=== PATIENT | female | born 1955 | race Caucasian/White ===

== ENCOUNTER 2017-05-03 04:23 | Inpatient (IN) | payer OTHER ==
[~2017-05-03] VITALS: Ht 157.5 cm; Wt 51.0 kg
[~2017-05-03 04:23] MED LIST: ALBUTEROL0.09 MG/A2 IH; ANAPROX DS550 MG PO; ATIVAN0.5 MG PO; ATIVAN1 MG PO; CIPROFLOXACIN500 MG PO; DOXYCYCLINE MO100 MG PO; LOMOTIL 0.025 M1 TAB PO; MEDROL DOSEPAK4 MG PO; NAPROSYN500 MG PO; NKHM; SEPTRA DS 800 M1 TAB PO; TORADOL10 MG PO; VIBRAMYCIN100 MG PO; ZITHROMAX Z PA250 MG PO; ZOFRAN ODT8 MG PO
[2017-05-03 04:30] VITALS: BP 145/71
[2017-05-03 04:58] LABS: BASO % 0.3 % (0.0-1.0); EOS % 0.4 % (1.0-4.0); HEMATOCRIT 36.1 % (37.0-47.0); HEMOGLOBIN 11.9 g/dl (12.0-16.0); LYMPH % 17.7 % (27.0-41.0); MEAN CELL VOLUME 89.8 fl (81.0-99.0); MEAN CORPUSCULAR HGB 29.6 pg (27.0-31.0); MEAN PLATELET VOLUME 10.2 fl (9.6-12.3); MONO % 8.6 % (3.0-9.0); NEUT # 8.2 10*3/uL (2.3-7.9); NEUT % 72.7 % (47.0-73.0); PLATELET COUNT AUTOMATED 244 10*3/uL (130-400); RED BLOOD COUNT 4.02 10*6/uL (4.10-5.10); RED CELL DISTRI WIDTH 11.9 % (0-14.5); WHITE BLOOD COUNT 11.2 10*3/uL (4.8-10.8)
[2017-05-03] MEDS ORDERED: AVPAK AZITHROM250 M1 PO (05:15)
[2017-05-03] MEDS ORDERED: PREDNISONE50 MG PO (05:15)
[2017-05-03 05:18] LABS: ALBUMIN 3.1 gm/dl (3.1-4.5); ALKALINE PHOSPHATASE 65 U/L (45-117); BUN 5 mg/dl (7-24); CHLORIDE 107 mmol/L (98-107); CREATININE 0.53 mg/dL (0.55-1.02); POTASSIUM 3.7 mmol/L (3.5-5.1); SGOT/AST 8 IU/L (3-35); SGPT/ALT 14 U/L (12-78); SODIUM 141 mmol/L (136-145); TOTAL PROTEIN 7.2 gm/dL (6.4-8.2)
[2017-05-03 05:20] LABS: TROPONIN I < 0.015 ng/ml (<0.045)
[2017-05-03 06:20] VITALS: BP 140/67
--- NOTE | 2017-05-03 06:20 | NUR ---
Time: 619 A 61 year old female admitted to under services of TIFFANIE ASHTON DO, Pt. arrived via stretcher from ER. Chief complaint: cough 1-2 weeks, coughing spell at 3am and having pain right side breast. SOB. skin intact. JERED RCUZ
--- NOTE | 2017-05-03 06:46 | NUR ---
tylenol given per order for headache rated "3" per pt.
[2017-05-03 08:00] VITALS: BP 127/64
--- NOTE | 2017-05-03 08:00 | NUR ---
TYLENOL EFFECTIVE PER PT.
--- NOTE | 2017-05-03 09:00 | NUR ---
Rock Worker in to talk to patient. Patient states lives at home with daughter. There are few steps in the home. Physician: [facility] Patient's level of ADLs: INDEPENDENT Patient has working utilities: all working DME: none Follow-up physician's appointment after d/c: will be made by hospitalist nurse director upon discharge Does patient want to access PORTAL?: no Discharge plan discussed with patient, patient states she lives at home with her daughter, states she is independent in adls and ambulation, no home equipement, patient drives, patient states she will be going back home and denies any home needs. PETE PEREZ
--- NOTE | 2017-05-03 09:15 | NUR ---
patient was given a list of doctors to choose from for her follow up appointment
--- NOTE | 2017-05-03 11:00 | NUR ---
PT AWARE THAT SATX'S ARE PRN...STATES SHE WILL CALL IF NEEDED.BBS DIM AT THIS TIME PT IN NO DISTRESS
[2017-05-03 12:00] VITALS: BP 116/55
[2017-05-03 16:00] VITALS: BP 136/60
[2017-05-03 20:00] VITALS: BP 122/59
--- NOTE | 2017-05-03 20:00 | NUR ---
RESTING IN BED WATCHING TV. NO DISTRESS NOTED. RESPIRATIONS EASY. LUNGS DIMINISHED WITH POOR AIR EXCHANGE. PULSE OX 95% RA, DENIES SOB. NON-PRODUCTIVE COUGH PER PATIENT. C/O SINUS DRAINAGE. OFFERED AND EDUCATED REGARDING TEDS, DECLINED. CALL LIGHT WITHIN REACH.
--- NOTE | 2017-05-03 20:35 | NUR ---
PATIENT ADMITS TO 1/2-1 PPD SMOKING. REQUESTING SOMETHING TO ASSIST. EDUCATED REGARDING OPTIONS. [facility]O CONTACTED AND INFORMED PATIENT REQUESTING NICOTROL INHALER
[2017-05-04] VITALS: BP 113/60
--- NOTE | 2017-05-04 | NUR ---
SLEEPING. NO S/S DISTRESS. RESPIRATIONS EASY. VSS. CALL LIGHT WITHIN REACH
[2017-05-04 03:55] VITALS: BP 120/62
--- NOTE | 2017-05-04 06:00 | NUR ---
RESTED THROUGHOUT NIGHT WITH NO DISTRESS NOTED. RESPIRATIONS EASY. DENIES COUGH OR SOB. VOICING DESIRE FOR DISCHARGE WHEN DR'S ROUND. CALL LIGHT WITHIN REACH
[2017-05-04 06:11] LABS: BASO % 0.1 % (0.0-1.0); HEMATOCRIT 37.2 % (37.0-47.0); HEMOGLOBIN 12.4 g/dl (12.0-16.0); LYMPH # 1.6 10*3/uL (1.3-4.4); LYMPH % 9.3 % (27.0-41.0); MEAN CELL VOLUME 89.4 fl (81.0-99.0); MEAN CORPUSCULAR HGB 29.8 pg (27.0-31.0); MEAN CORPUSCULAR HGB CONC 33.3 g/dl (33.0-37.0); MEAN PLATELET VOLUME 11.2 fl (9.6-12.3); MONO # 0.4 10*3/uL (0.1-1.0); NEUT # 15.5 10*3/uL (2.3-7.9); PLATELET COUNT AUTOMATED 291 10*3/uL (130-400); RED BLOOD COUNT 4.16 10*6/uL (4.10-5.10); RED CELL DISTRI WIDTH 11.9 % (0-14.5); WHITE BLOOD COUNT 17.6 10*3/uL (4.8-10.8)
[2017-05-04 06:30] LABS: ALBUMIN 3.1 gm/dl (3.1-4.5); BUN 9 mg/dl (7-24); CHLORIDE 109 mmol/L (98-107); CHOLESTEROL 130 mg/dL (<200); CREATININE 0.53 mg/dL (0.55-1.02); PHOSPHOROUS 3.2 mg/dL (2.5-4.9); POTASSIUM 4.1 mmol/L (3.5-5.1); SGOT/AST 10 IU/L (3-35); SGPT/ALT 17 U/L (12-78); SODIUM 143 mmol/L (136-145); TOTAL PROTEIN 7.6 gm/dL (6.4-8.2); TRIGLYCERIDES 50 mg/dl (<150); VLDL CHOLESTEROL 10 mg/dL (6-40)
[2017-05-04 06:36] LABS: ALKALINE PHOSPHATASE 65 U/L (45-117); FREE T4 1.03 ng/dl (0.76-1.46); HDL CHOLESTEROL 53 mg/dl (40-60); LDL CHOLESTEROL 67 mg/dL (9-159); THYROID STIM HORMONE (HS) 0.794 uIU/ml (0.358-4.75)
--- NOTE | 2017-05-04 08:00 | NUR ---
SITTING UP IN BED AND NO DISTRESS NOTED. STATES SHE FEELS BETTER. SEE SHIFT ASSESSMENT.
[2017-05-04 08:06] VITALS: BP 126/55
--- NOTE | 2017-05-04 08:30 | NUR ---
Rose Grower in to see patient. There are no new needs or request at this time. She is independent in her ADLs and ambulation. When medically stable she will be discharged home.
[2017-05-04 08:48] LABS: VITAMIN D, 25-HYDROXY 16.1 ng/mL (30-100)
[2017-05-04] MEDS ORDERED: LEVOFLOXACIN500 MG PO (09:54)
[2017-05-04] MEDS ORDERED: NICOTROL10 MG INH (09:54)
[2017-05-04] MEDS ORDERED: PREDNISONE10 MG PO (09:54)
[2017-05-04] MEDS ORDERED: TESSALON PERLE100 M1 PO (09:54)
--- NOTE | 2017-05-04 10:45 | NUR ---
HOME O2 ASSESSMENT: PRE BP: 129/66, HR 86, RR 18, PULSE OX 98% ON ROOM AIR. AMBULATED PATIENT TWO BRISK LAPS IN HALLWAY, PULSE OX 95% ON ROOM AIR THROUGHOUT AMBULATION. POST BP: 139/56, HR 79, RR 18, PULSE OX 96% ON ROOM AIR. APPEARED TO TOLERATE WELL. RN NOTIFIED.
--- NOTE | 2017-05-04 11:20 | NUR ---
DISCHARGED TO HOME IN CARE OF FAMILY. INSTRUCTIONS AND PERSCRIPTIONS REVIEWED WITH PT. PT REFUSED FLU VACCINE.
== END 2017-05-04 11:20 | disposition home or self-care (01) | DRG 871 ==
LOC: ED 04:23 → EDHOLD 05:29 → 4E 05:29
PROVIDERS: Family Medicine; Student in an Organized Health Care Education/Training Program; ADMIT Internal Medicine
DX: A41.9 Sepsis, unspecified organism (principal); J18.9 Pneumonia, unspecified organism; E44.0 Moderate protein-calorie malnutrition; J44.0 Chronic obstructive pulmonary disease with (acute) lower respiratory infection; J44.1 Chronic obstructive pulmonary disease with (acute) exacerbation; I10 Essential (primary) hypertension; D64.9 Anemia, unspecified; Z71.6 Tobacco abuse counseling; Z72.0 Tobacco use; Z68.20 Body mass index [BMI] 20.0-20.9, adult; Z88.8 Allergy status to other drugs, medicaments and biological substances; Z79.899 Other long term (current) drug therapy; Z87.81 Personal history of (healed) traumatic fracture; Z82.49 Family history of ischemic heart disease and other diseases of the circulatory system

== ENCOUNTER 2017-12-25 21:40 | Inpatient (IN) | payer OTHER ==
[~2017-12-25] VITALS: Ht 154.9 cm; Wt 54.1 kg
--- NOTE | ~2017-12-25 | EKG ---
[place], [place] ELECTROCARDIOGRAM REPORT NAME: KIERRA COLON UNIT #: [id number] ROOM: 516 DOCTOR: KINGSTON DRAFT REPORT BIRTHDATE: [birth year] [facility] Test Date: 2017-12-25 Test Time: 22:46:28 Pat Name: KIERRA COLON Department: ER Room: 516 Gender: F Lighting Adviser: SHAYNA : [id number] Requested By: SULMA FELIX PA-C Order Number: [id number] Reading MD: Fab Vickers MD Measurements Intervals Zebulon Rate: 114 P: 67 MO: 171 QRS: -9 QRSD: 83 T: 80 QT: 331 QTc: 456 Interpretive Statements Sinus tachycardia RSR' in V1 or V2, right VCD or RVH Baseline wander in lead(s) V5 Electronically Signed On 12-26-2017 10:20:41 PDT by Fab Vickers MD CM:[email or web address]:ELECTROCARDIOGRAM REPORT [id number] SULMA ONOFRE DRAFT REPORT SULMA FELIX PA-C
[~2017-12-25 21:40] MED LIST changes: +AVPAK AZITHROM250 M1 PO; +LEVOFLOXACIN500 MG PO; +NICOTROL10 MG INH; +PREDNISONE10 MG PO; +PREDNISONE50 MG PO; +TESSALON PERLE100 M1 PO
[2017-12-25 21:41] VITALS: BP 169/89
[2017-12-25 22:40] LABS: BASO % 0.3 % (0.0-1.0); EOS # 0.1 10*3/uL (0.0-0.4); HEMATOCRIT 41.9 % (37.0-47.0); LYMPH # 3.4 10*3/uL (1.3-4.4); LYMPH % 28.9 % (27.0-41.0); MEAN CELL VOLUME 91.1 fl (81.0-99.0); MEAN CORPUSCULAR HGB 30.4 pg (27.0-31.0); MEAN CORPUSCULAR HGB CONC 33.4 g/dl (33.0-37.0); MEAN PLATELET VOLUME 10.4 fl (9.6-12.3); MONO % 8.3 % (3.0-9.0); NEUT # 7.1 10*3/uL (2.3-7.9); NEUT % 61.2 % (47.0-73.0); PLATELET COUNT AUTOMATED 233 10*3/uL (130-400); RED CELL DISTRI WIDTH 12.4 % (0-14.5); WHITE BLOOD COUNT 11.7 10*3/uL (4.8-10.8)
[2017-12-25 22:52] LABS: INTERNATIONAL NORM RATIO 0.9 (2.0-3.5)
[2017-12-25 22:58] LABS: ALKALINE PHOSPHATASE 63 U/L (45-117); BUN 9 mg/dl (7-24); CHLORIDE 107 mmol/L (98-107); CREATININE 0.65 mg/dL (0.55-1.02); POTASSIUM 3.6 mmol/L (3.5-5.1); SGOT/AST 16 IU/L (3-35); SGPT/ALT 19 U/L (12-78); SODIUM 141 mmol/L (136-145); TOTAL PROTEIN 7.5 gm/dL (6.4-8.2)
[2017-12-25 22:59] LABS: TROPONIN I < 0.015 ng/ml (<0.045)
[2017-12-26 00:15] VITALS: BP 145/77
[2017-12-26 06:28] LABS: BASO % 0.4 % (0.0-1.0); EOS % 0.4 % (1.0-4.0); HEMATOCRIT 39.5 % (37.0-47.0); HEMOGLOBIN 12.7 g/dl (12.0-16.0); LYMPH # 2.4 10*3/uL (1.3-4.4); LYMPH % 31.2 % (27.0-41.0); MEAN CELL VOLUME 91.9 fl (81.0-99.0); MEAN CORPUSCULAR HGB 29.5 pg (27.0-31.0); MEAN CORPUSCULAR HGB CONC 32.2 g/dl (33.0-37.0); MEAN PLATELET VOLUME 10.7 fl (9.6-12.3); MONO # 0.6 10*3/uL (0.1-1.0); MONO % 7.7 % (3.0-9.0); NEUT # 4.7 10*3/uL (2.3-7.9); PLATELET COUNT AUTOMATED 210 10*3/uL (130-400); RED CELL DISTRI WIDTH 12.4 % (0-14.5); WHITE BLOOD COUNT 7.8 10*3/uL (4.8-10.8)
[2017-12-26 06:44] LABS: BUN 7 mg/dl (7-24); CHLORIDE 111 mmol/L (98-107); CREATININE 0.53 mg/dL (0.55-1.02); PHOSPHOROUS 3.7 mg/dL (2.5-4.9); POTASSIUM 4.3 mmol/L (3.5-5.1); SODIUM 146 mmol/L (136-145)
[2017-12-26 08:00] VITALS: BP 168/85
== END 2017-12-26 13:07 | disposition home or self-care (01) | DRG 918 ==
LOC: ED 21:40 → EDHOLD 23:41 → 5E 23:41
PROVIDERS: Physician Assistant; Student in an Organized Health Care Education/Training Program
DX: T58.91XA Toxic effect of carbon monoxide from unspecified source, accidental (unintentional), initial encounter (principal); R65.10 Systemic inflammatory response syndrome (SIRS) of non-infectious origin without acute organ dysfunction; R00.0 Tachycardia, unspecified; F17.210 Nicotine dependence, cigarettes, uncomplicated; J44.9 Chronic obstructive pulmonary disease, unspecified; Z71.6 Tobacco abuse counseling; Z88.8 Allergy status to other drugs, medicaments and biological substances; Z82.49 Family history of ischemic heart disease and other diseases of the circulatory system; Z87.81 Personal history of (healed) traumatic fracture; Y92.89 Other specified places as the place of occurrence of the external cause

== ENCOUNTER 2020-10-19 09:33 | Emergency (ER) | payer OTHER ==
[~2020-10-19] VITALS: Ht 157.4 cm; Wt 54.4 kg
[2020-10-19 10:15] LABS: BASO % 0.4 % (0.0-1.0); EOS # 0.1 10*3/uL (0.0-0.4); EOS % 1.5 % (1.0-4.0); HEMATOCRIT 44.3 % (37.0-47.0); LYMPH # 2.1 10*3/uL (1.3-4.4); LYMPH % 29.4 % (27.0-41.0); MEAN CELL VOLUME 89.9 fl (81.0-99.0); MEAN CORPUSCULAR HGB 29.2 pg (27.0-31.0); MEAN CORPUSCULAR HGB CONC 32.5 g/dl (33.0-37.0); MEAN PLATELET VOLUME 10.3 fl (9.6-12.3); MONO # 0.7 10*3/uL (0.1-1.0); MONO % 9.2 % (3.0-9.0); NEUT # 4.3 10*3/uL (2.3-7.9); NEUT % 59.4 % (47.0-73.0); PLATELET COUNT AUTOMATED 256 10*3/uL (130-400); RED BLOOD COUNT 4.93 10*6/uL (4.10-5.10); RED CELL DISTRI WIDTH 12.6 % (0-14.5); WHITE BLOOD COUNT 7.3 10*3/uL (4.8-10.8)
[2020-10-19 10:26] LABS: ACT PARTIAL THROMBO TIME 27.1 SECONDS (20.0-32.1)
[2020-10-19 10:31] LABS: ALBUMIN 3.9 gm/dl (3.1-4.5); ALKALINE PHOSPHATASE 65 U/L (45-117); BUN 12 mg/dl (7-24); CHLORIDE 108 mmol/L (98-107); LIPASE 394 U/L (73-393); POTASSIUM 3.9 mmol/L (3.5-5.1); SGOT/AST 15 IU/L (3-35); SGPT/ALT 24 U/L (12-78); SODIUM 140 mmol/L (136-145)
[2020-10-19 10:33] LABS: TROPONIN I < 0.015 ng/ml (<0.045)
[2020-10-19] MEDS ORDERED: ATIVAN1 MG PO (12:19)
== END 2020-10-19 12:22 | disposition home or self-care (01) ==
LOC: ED 09:33
PROVIDERS: Emergency Medicine
DX: F41.9 Anxiety disorder, unspecified (principal); Z88.6 Allergy status to analgesic agent; Z88.8 Allergy status to other drugs, medicaments and biological substances

== ENCOUNTER 2022-06-22 08:55 | Emergency (ER) | payer MEDICARE, MEDICAID ==
[~2022-06-22] VITALS: Ht 154.9 cm; Wt 53.5 kg
[2022-06-22 10:12] LABS: BASO % 0.7 % (0.0-1.0); EOS # 0.1 10*3/uL (0.0-0.4); EOS % 1.6 % (1.0-4.0); HEMATOCRIT 44.5 % (37.0-47.0); LYMPH # 1.2 10*3/uL (1.3-4.4); LYMPH % 26.3 % (27.0-41.0); MEAN CELL VOLUME 91.6 fl (81.0-99.0); MEAN CORPUSCULAR HGB 29.4 pg (27.0-31.0); MEAN CORPUSCULAR HGB CONC 32.1 g/dl (33.0-37.0); MEAN PLATELET VOLUME 10.6 fl (9.6-12.3); MONO # 0.5 10*3/uL (0.1-1.0); MONO % 11.7 % (3.0-9.0); NEUT # 2.7 10*3/uL (2.3-7.9); NEUT % 59.5 % (47.0-73.0); PLATELET COUNT AUTOMATED 191 10*3/uL (130-400); RED BLOOD COUNT 4.86 10*6/uL (4.10-5.10); RED CELL DISTRI WIDTH 12.2 % (0-14.5); WHITE BLOOD COUNT 4.5 10*3/uL (4.8-10.8)
[2022-06-22 10:28] LABS: ALKALINE PHOSPHATASE 60 U/L (46-116); BUN 7 mg/dl (9-23); CHLORIDE 105 mmol/L (98-107); POTASSIUM 3.8 mmol/L (3.4-5.1); SGPT/ALT 14 U/L (10-49); TOTAL PROTEIN 7.1 gm/dL (6.0-8.0)
[2022-06-22] MEDS ORDERED: ALBUTEROL2.5 MG/0.5 INH (11:02)
[2022-06-22] MEDS ORDERED: PREDNISONE20 M1 PO (11:02)
== END 2022-06-22 15:59 | disposition home or self-care (01) ==
LOC: ED 08:55
PROVIDERS: Emergency Medicine
DX: J44.9 Chronic obstructive pulmonary disease, unspecified (principal); R07.89 Other chest pain; Z87.891 Personal history of nicotine dependence; Z88.8 Allergy status to other drugs, medicaments and biological substances

== ENCOUNTER 2024-03-10 22:39 | Emergency (ER) | payer MEDICARE, MEDICAID ==
[~2024-03-10] VITALS: Ht 154.9 cm; Wt 45.8 kg
[~2024-03-10 22:39] MED LIST changes: +ALBUTEROL2.5 MG/0.5 INH; +PREDNISONE20 M1 PO
[2024-03-10] MEDS ORDERED: LORazepam 1 MG TAB PO ONE (23:10)
== END 2024-03-11 00:41 | disposition home or self-care (01) ==
LOC: ED 22:39
DX: F41.9 Anxiety disorder, unspecified (principal); D64.9 Anemia, unspecified; J44.9 Chronic obstructive pulmonary disease, unspecified; F17.200 Nicotine dependence, unspecified, uncomplicated; Z88.6 Allergy status to analgesic agent; Z88.5 Allergy status to narcotic agent; Z88.8 Allergy status to other drugs, medicaments and biological substances; Z98.890 Other specified postprocedural states

== ENCOUNTER 2024-12-01 13:18 | Emergency (ER) | payer MEDICARE, MEDICAID ==
[~2024-12-01] VITALS: Ht 157.4 cm; Wt 43.5 kg
[2024-12-01] MEDS ORDERED: SODIUM CHLORIDE 0.9% 1,000 ML IV ONE (13:35)
[2024-12-01 13:55] LABS: BASO # 0.0 10*3/uL (0.0-0.1); BASO % 0.2 % (0.0-1.0); EOS # 0.0 10*3/uL (0.0-0.4); EOS % 0.0 % (1.0-4.0); MEAN CELL VOLUME 89.9 fl (81.0-99.0); MEAN CORPUSCULAR HGB 29.3 pg (27.0-31.0); MEAN PLATELET VOLUME 10.2 fl (9.6-12.3); MONO # 1.0 10*3/uL (0.1-1.0); MONO % 11.9 % (3.0-9.0); NEUT # 6.1 10*3/uL (2.3-7.9); NEUT % 72.2 % (47.0-73.0); NUCLEATED RED BLOOD CELL 0.0 % (0.0-0.0); NUCLEATED RED BLOOD CELL 0.0 10*3/uL (0.0-0.0); PLATELET COUNT AUTOMATED 247 10*3/uL (130-400); RED CELL DISTRI WIDTH 12.2 % (0-14.5)
[2024-12-01 14:11] LABS: BILIRUBIN 1+ (Negative); BLOOD Negative (Negative); CLARITY Clear (Clear); COLOR Dark Yellow (Yellow); KETONE 1+ (Negative); LEUKO ESTERASE 2+ (Negative); NITRITE Negative (Negative); PH 6.0 (4.5-8.0); SPECIFIC GRAVITY 1.025 (1.001-1.030); UROBILINOGEN 4.0 E.U./dl (0.0-1.0)
[2024-12-01 14:28] LABS: BUN 7 mg/dl (9-23); SGPT/ALT 8 U/L (5-49)
[2024-12-01 14:41] LABS: BACTERIA 2+; MUCOUS 2+
== END 2024-12-01 15:50 | disposition left against medical advice (07) ==
LOC: ED 13:18
PROVIDERS: Internal Medicine
DX: R53.1 Weakness (principal); J44.9 Chronic obstructive pulmonary disease, unspecified; F41.9 Anxiety disorder, unspecified; Z53.29 Procedure and treatment not carried out because of patient's decision for other reasons; Z79.899 Other long term (current) drug therapy; Z88.5 Allergy status to narcotic agent; Z88.6 Allergy status to analgesic agent; Z88.8 Allergy status to other drugs, medicaments and biological substances